=== PATIENT | female | born 1970 | race American Indian/Alaskan Native ===

== ENCOUNTER 2017-07-30 23:03 | Emergency (ER) | payer OTHER ==
[2017-07-31 00:10] LABS: Basophils % (Auto) 0.2 % (0.0-1.8); Eosinophils % (Auto) 0.2 % (0.0-4.3); Hemoglobin 14.9 gm/dl (10.1-14.3); Lymphocytes # (Auto) 2.9 K/mm3 (1.2-5.4); Lymphocytes % (Auto) 18.7 % (13.4-35.0); Mean Corpuscular HGB Conc 33 % (30-34); Mean Corpuscular Hemoglobin 28 pg (28-32); Mean Corpuscular Volume 85 fl (79-97); Monocytes % (Auto) 6.7 % (0.0-7.3); Platelet Count 281 K/mm3 (140-440); Red Blood Count 5.32 M/mm3 (3.65-5.03); Red Cell Distribution Width 13.6 % (13.2-15.2)
[2017-07-31 00:28] LABS: Alanine Aminotransferase 29 units/L (7-56); Albumin 3.8 g/dL (3.9-5); BUN/Creatinine Ratio 18; Blood Urea Nitrogen 14 mg/dL (7-17); Hemolysis Index 8; Lipase 32 units/L (13-60)
[2017-07-31 04:59] LABS: Bacteria,Urine 1+ /HPF (Negative); Bilirubin,Urine NEG (Negative); Blood,Urine NEG (Negative); Color,Urine Yellow (Yellow); Mucus,Urine 3+ /HPF; Urobilinogen,Urine < 2.0 mg/dL (<2.0)
[2017-07-31] MEDS ORDERED: ZOFRAN IV ONE (08:39)
[2017-07-31] MEDS ORDERED: NACL 0.9% 1000 ML 1,000 ML IV ONE (08:39)
[2017-07-31] MEDS ORDERED: SUBLIMAZE IV ONE (08:39)
--- NOTE | 2017-07-31 08:55 | Emergency Department Report ---
HPI - General Chief Complaint: Abdominal Pain Time Seen by Provider: 07/31/17 08:33 - HPI HPI: Room 8 The patient is a 47-year-old female presenting with a chief complaint of abdominal pain. The patient states 3 days ago she had eaten grilled pork chops , cabbage and sweet potatoes. The patient states approximately 30 minutes later she states she developed diffuse abdominal tightness and felt overheated. Patient states she began developing nausea vomiting and diarrhea. Patient states her abdominal discomfort is now localized to the left upper quadrant. The patient admits to fever 101F. The patient currently gives her pain a score of 8/10. The patient states her ate the same meal but did not eat the grilled pork chops and he is asymptomatic. The patient states she completed a Z-Sen approximately 3 weeks ago Location: Abdomen Duration: 3 Days Quality: Tightness Severity: 8/10 Modifying factors: [see above] Context: [see above] Mode of transportation: [not driving] ED Past Medical Hx - Past Medical History Previous Medical History?: Yes Hx Hypertension: Yes Hx Diabetes: Yes - Surgical History Past Surgical History?: Yes Additional Surgical History: Bilateral tubal ligation, hysterectomy, Zander in right upper extremity and right lower extremity - Family History Family history: no significant - Social History Smoking Status: Never Smoker Substance Use Type: None - Medications Home Medications: Home Medications Medication Instructions Recorded Confirmed Last Taken Type Ciprofloxacin HCl [Ciprofloxacin 500 mg PO Q12HR #20 tab 07/31/17 Unknown Rx TAB] HYDROcodone/ACETAMINOPHEN [Lambert 1 - 2 each PO Q4-6H PRN #14 tablet 07/31/17 Unknown Rx 5-325 Tablet] Promethazine [Phenergan TAB] 25 mg PO Q6HR PRN #20 tab 07/31/17 Unknown Rx metroNIDAZOLE [Flagyl] 500 mg PO Q8HR #30 tablet 07/31/17 Unknown Rx ED Review of Systems ROS: Stated complaint: STOMACH PAIN Other details as noted in HPI Constitutional: fever Gastrointestinal: abdominal pain, nausea, vomiting, diarrhea Physical Exam - Physical Exam Vital Signs: Vital Signs 07/30/17 07/30/17 07/31/17 23:03 23:20 06:36 Temperature 98.0 F 98.0 F Pulse Rate 91 H 80 88 Respiratory 18 20 Rate Blood Pressure 146/108 146/108 Blood Pressure 146/108 143/77 [Right] O2 Sat by Pulse 97 98 Oximetry 07/31/17 07/31/17 08:26 08:30 Temperature Pulse Rate Respiratory Rate Blood Pressure 151/98 Blood Pressure [Right] O2 Sat by Pulse 98 96 Oximetry Physical Exam: GENERAL: The patient is well-developed well-nourished female lying on stretcher not appearing to be in acute distress. [] HEENT: Normocephalic. Atraumatic. Extraocular motions are intact. Patient has moist mucous membranes. NECK: Supple. Trachea midline CHEST/LUNGS: Clear to auscultation. There is no respiratory distress noted. HEART/CARDIOVASCULAR: Regular. There is no tachycardia. There is no gallop rub or murmur. ABDOMEN: Abdomen is soft, with tenderness to palpation in the left upper quadrant and midepigastric region. Patient has normal bowel sounds. There is no abdominal distention. SKIN: There is no rash. There is no edema. There is no diaphoresis. NEURO: The patient is awake, alert, and oriented. The patient is cooperative. The patient has normal speech MUSCULOSKELETAL: There is no evidence of acute injury. ED Course Vital Signs 07/30/17 07/30/17 07/31/17 23:03 23:20 06:36 Temperature 98.0 F 98.0 F Pulse Rate 91 H 80 88 Respiratory 18 20 Rate Blood Pressure 146/108 146/108 Blood Pressure 146/108 143/77 [Right] O2 Sat by Pulse 97 98 Oximetry 07/31/17 07/31/17 08:26 08:30 Temperature Pulse Rate Respiratory Rate Blood Pressure 151/98 Blood Pressure [Right] O2 Sat by Pulse 98 96 Oximetry ED Medical Decision Making - Lab Data Result diagrams: 07/30/17 23:40 07/30/17 23:40 Laboratory Tests 07/30/17 07/30/17 07/31/17 23:40 23:40 04:44 WBC 15.2 H RBC 5.32 H Hgb 14.9 H Hct 45.0 H MCV 85 MCH 28 MCHC 33 RDW 13.6 Plt Count 281 Lymph % (Auto) 18.7 [place] % (Auto) 6.7 Eos % (Auto) 0.2 Baso % (Auto) 0.2 Lymph # 2.9 [place] # 1.0 H Eos # 0.0 Baso # 0.0 Seg Neutrophils % 74.2 H Seg Neutrophils # 11.3 H Sodium 137 Potassium 4.3 Chloride 99.4 Carbon Dioxide 24 Anion Gap 18 BUN 14 Creatinine 0.8 Estimated GFR > 60 BUN/Creatinine Ratio 18 Glucose 123 H Calcium 9.0 Total Bilirubin 0.50 AST 17 ALT 29 Alkaline Phosphatase 83 Total Protein 7.4 Albumin 3.8 L Albumin/Globulin Ratio 1.1 Lipase 32 Urine Color Yellow Urine Turbidity Clear Urine pH 6.0 Ur Specific [place] 1.029 Urine Protein 30 mg/dl Urine Glucose (UA) Neg Urine Ketones Neg Urine Blood Neg Urine Nitrite Neg Urine Bilirubin Neg Urine Urobilinogen < 2.0 Ur Leukocyte Esterase Mod Urine WBC (Auto) 28.0 H Urine RBC (Auto) 10.0 U Epithel Cells (Auto) 24.0 H Urine Bacteria (Auto) 1+ Urine Mucus 3+ - EKG Data -: EKG Interpreted by Me EKG shows normal: sinus rhythm Rate: normal - EKG Data When compared to previous EKG there are: previous EKG unavailable Interpretation: nonspecific ST-T wave cristofer (T-wave inversion in lead V2) - Radiology Data Radiology results: report reviewed (CT abdomen and pelvis) CT abdomen and pelvis (read by radiologist)-question a mild distal colitis? 2.1 cm right ovarian cyst. Cholecystectomy. Hysterectomy - Differential Diagnosis foodborne illness, gastroenteritis, colitis, peptic ulcer disease Critical care attestation.: If time is entered above; I have spent that time in minutes in the direct care of this critically ill patient, excluding procedure time. ED Disposition Clinical Impression: Acute colitis, Acute abdominal pain Disposition: DC-01 TO HOME OR SELFCARE Is pt being admited?: No Does the pt Need Aspirin: No Condition: Stable Instructions: Abdominal Pain (ED), Infectious Colitis (ED) Additional Instructions: Return to the emergency department immediately should you develop worsening symptoms, fever, inability to tolerate food or liquid or any other concerns. Prescriptions: Ciprofloxacin HCl [Ciprofloxacin TAB] 500 mg PO Q12HR #20 tab HYDROcodone/ACETAMINOPHEN [Lambert 5-325 Tablet] 1 - 2 each PO Q4-6H PRN #14 tablet PRN Reason: Pain metroNIDAZOLE [Flagyl] 500 mg PO Q8HR #30 tablet Promethazine [Phenergan TAB] 25 mg PO Q6HR PRN #20 tab PRN Reason: Nausea Referrals: PRIMARY CARE, [Primary Care Provider] - 3-5 Days JOSE DAMON MD [Staff Physician] - 3-5 Days (Dr. Damon is a library associate. Please follow-up with him for further evaluation) Time of Disposition: 11:03
[2017-07-31 13:42] VITALS: BP 109/78
--- NOTE | 2017-08-03 12:57 | Cat Scan Report ---
CT ABDOMEN PELVIS WITH CONTRAST: HISTORY: Epigastric pain, left upper quadrant abdominal pain, nausea vomiting and diarrhea. COMPARISON: none. TECHNIQUE: Helical CT in 1.25mm intervals following IV contrast. Sagittal and coronal reconstructions. FINDINGS: Lung bases: Normal. Liver: Mild diffuse fatty infiltration of the liver parenchyma is noted. No enlargement, mass or surface nodularity. Biliary system: Cholecystectomy. Pancreas: Normal. Spleen: Normal. Kidneys/ureters/bladder: Normal. Adrenal glands: Normal. Aorta: Normal. Intestines: There is no oral contrast in the GI system which limits this exam. There is no evidence for obstruction. There is questionable mild circumferential thickening of the distal transverse colon and proximal descending colon. A mild colitis could be considered. The remaining bowel loops are unremarkable. Appendix: Normal. Pelvic viscera: Hysterectomy. 2.1 cm right ovarian cyst. The left ovary is not clearly identified. Ascites: None. Adenopathy: None. Musculoskeletal: Normal. IMPRESSION: Question a mild distal colitis, see above. Mild fatty infiltration of the liver. Cholecystectomy. Hysterectomy. 2.1 cm right ovarian cyst.
== END 2017-07-31 11:35 | disposition home or self-care (01) ==
LOC: ED 23:03
DX: K52.89 Other specified noninfective gastroenteritis and colitis (principal); I10 Essential (primary) hypertension; E11.9 Type 2 diabetes mellitus without complications; Z98.51 Tubal ligation status; Z90.710 Acquired absence of both cervix and uterus
CPT/HCPCS: 36415; 74177; 80053; 81001; 83690; 85025; 96361; 96374; 96375; 99284; J2405; J3010; J7030; Q9967